=== PATIENT | female | born 1940 | race Caucasian/White ===

== ENCOUNTER 2017-01-27 22:07 | Emergency (ER) | payer MEDICARE, OTHER ==
--- NOTE | ~2017-01-27 | ER ---
PATIENT'S NAME: WESLEY LÓPEZ [facility] AGE: 76 Y [address] ROOM: [place] [address] LOCATION: [facility] ADMIT DATE: 01/27/2017 ER/Outpatient Report DISCHARGE DATE: FAMILY PHYSICIAN: Physician, Unknown ATTENDING PHYSICIAN: Marcio Guadalupe HISTORY OF PRESENT ILLNESS: This patient is a 76-year-old female, who presented to the emergency room with exacerbation of her asthma. She is short of breath with a cough. She kind of panicked tonight, ended up coming to the emergency room for evaluation. The patient saw ALEXANDRIA Woodson, initially. The patient got IV Solu-Medrol 125 mg here in the emergency department, got a DuoNeb and an albuterol nebulizer respiratory treatment here in the emergency department. She was placed on some oxygen per nasal cannula for a short period of time. Her chest x-ray showed no acute infiltrate. We will review x-ray with the radiologist. LABORATORY DATA: Her lactate was 1.9. Procalcitonin was less than 0.05. CMS was normal except for a slightly low potassium at 3.5, slightly elevated glucose at 104, an elevated alkaline phosphatase of 174. White count was 7000, 69 segs, 21 lymphs, 9 monos, 1 eosinophil. Hemoglobin is 15.7 with hematocrit 47.3, platelet count is 170,000. IMPRESSION: 1. Exacerbation of asthma. 2. Chronic obstructive pulmonary disease. PLAN: The patient is discharged home. Observation. Activity as tolerated. Continue present home medications and care. Fluids and diet as tolerated. Xopenex 1.25 mg unit dose use per nebulizer respiratory treatment 4 times a day as needed. Prednisone 20 mg twice a day for 1 week. Follow up with personal physician as needed. Discussion ensued with the patient concerning my findings and recommendations, she understands. MARCIO GUADALUPE MD SDS/modl /[id number] d: 01/28/17 0047 t: 02/27/17 0342, OUTPATIENT REPORT
--- NOTE | ~2017-01-27 | ER ---
PATIENT'S NAME: WESLEY LÓPEZ [facility] AGE: 76 Y [address] ROOM: [place] [address] LOCATION: [facility] ADMIT DATE: 01/27/2017 ER/Outpatient Report DISCHARGE DATE: FAMILY PHYSICIAN: Physician, Unknown ATTENDING PHYSICIAN: Nura Hyman Time of Arrival: 2207 hours. Time of Evaluation: 2230 hours. CHIEF COMPLAINT: Asthma exacerbation. HISTORY OF PRESENT ILLNESS: This is a 76-year-old female, who presents to the ER, who states that she is having troubles breathing. The patient states she has a history of chronic COPD and bronchitis. She feels like her symptoms have worsened over the past week. She states she was evaluated by Dr. Collins on Saturday, but no medications were started at that time. The patient states that she feels like she got much worse tonight. She states she has had a productive cough. She states that she is not able to get it coughed all the way out, however. She has not been running any fevers. She denies any vomiting or diarrhea. ALLERGIES AND MEDICATIONS: Please see medication list in nurse's notes. PAST MEDICAL HISTORY: Asthma, hypothyroidism, back pain, arthritis, hypertension, COPD, cardiomyopathy, dyslipidemia, tremor, depression, anxiety, degenerative joint disease. PAST SURGICAL HISTORY: Bilateral total knee, right knee scope, cholecystectomy, hysterectomy, tonsillectomy, adenoids, and colonoscopy. SOCIAL HISTORY: She drinks alcohol rarely. Denies any smoking use. REVIEW OF SYSTEMS: A 10-point review of systems was completed and was negative with the exception of those discussed in the HPI. PHYSICAL EXAMINATION: VITAL SIGNS: Height 5 feet 3 inches stated, blood pressure is 180/100, pulse 97, respirations 20, saturations 99% on room air. Griswold Coma Score is 15. GENERAL: Alert, slightly anxious appearing female, in mild distress. PATIENT'S NAME: WESLEY LÓPEZ [facility] AGE: 76 Y [address] ROOM: [place] [address] LOCATION: [facility] ADMIT DATE: 01/27/2017 ER/Outpatient Report DISCHARGE DATE: FAMILY PHYSICIAN: Physician, Unknown ATTENDING PHYSICIAN: Nura Hyman HEENT: Head: Normocephalic. She does display moist mucous membranes. Eyes: Pupils are equal and reactive to light. NECK: Supple. No lymphadenopathy. LUNGS: Diminished. Does have an occasional wheeze throughout. HEART: Regular rate and rhythm. No lifts, thrills, or murmurs. ABDOMEN: Soft, nontender. She has good bowel sounds throughout. No masses are palpated. EXTREMITIES: No clubbing or cyanosis noted. LABORATORY DATA AND X-RAYS: Pending. I will be turning the patient's care over to Dr. Hyman at this time. The patient understands and agrees with care. JARVIS LANGFORD PA-C FOR MD MAHSA BERRIOS/nakia /[id number] d: t: 01/31/172032, OUTPATIENT REPORT
[2017-01-27 23:04] LABS: BASOPHIL % 0.4 %; EOSINOPHIL # 0.1 K/uL (0.0-0.5); EOSINOPHIL % 1.1 %; HEMATOCRIT 47.3 % (33.0-46.0); HEMOGLOBIN 15.7 g/dL (10.0-15.0); IMMATURE GRANULOCYTE % 0.1 %; LYMPHOCYTE # 1.5 K/uL (0.8-4.0); LYMPHOCYTE % 20.9 %; MCH 31.4 pg (27.0-34.0); MCHC 33.2 gm/dL (32.0-36.5); MCV 94.6 fl (83.0-98.0); MONOCYTE # 0.6 K/uL (0.0-1.0); MONOCYTE % 8.8 %; MPV 10.3 fl (9.4-12.4); NEUTROPHIL # (ANC) 4.8 K/uL (1.8-7.8); NEUTROPHIL % 68.7 %; NRBC % 0 /100WBC (0-0.00); PLATELET COUNT 170 K/uL (150-450); RDW-CV 13.2 % (11.9-14.6)
[2017-01-27 23:20] LABS: ALBUMIN 4.1 gm/dL (3.5-5.0); ALK PHOS 174 IU/L (33-138); ALT 27 IU/L (12-78); ANION GAP 12.5 (10.0-19.0); AST 23 IU/L (10-40); BLOOD UREA NITROGEN 17 mg/dL (6-24); CALCIUM 8.8 mg/dL (8.5-10.5); CHLORIDE 104 mMol/L (96-110); CO2 26 mMol/L (22-32); CREATININE 0.8 mg/dL (0.5-1.1); ESTIMATED GFR (MDRD EQUATION) > 60; POTASSIUM 3.5 mMol/L (3.7-5.1); SODIUM 139 mMol/L (135-145); TOTAL BILIRUBIN 0.3 mg/dL (0.0-1.5); TOTAL PROTEIN 7.1 g/dL (6.0-8.4)
== END 2017-01-28 00:45 | disposition disaster alternative care site (69) ==
LOC: GMED 22:07
PROVIDERS: Physician Assistant Medical
DX: J45.901 Unspecified asthma with (acute) exacerbation (principal); J44.9 Chronic obstructive pulmonary disease, unspecified; E03.9 Hypothyroidism, unspecified; M19.90 Unspecified osteoarthritis, unspecified site; I10 Essential (primary) hypertension; E78.5 Hyperlipidemia, unspecified; F32.9 Major depressive disorder, single episode, unspecified; F41.9 Anxiety disorder, unspecified; Z90.710 Acquired absence of both cervix and uterus; Z90.89 Acquired absence of other organs; Z79.82 Long term (current) use of aspirin
CPT/HCPCS: J2930

== ENCOUNTER → 2017-02-13 | Outpatient (CLI) | payer MEDICARE, OTHER ==
--- NOTE | ~2017-02-13 | PUL ---
PATIENT'S NAME: PINKY LÓPEZ [facility] AGE: 76 Y [address] ROOM: [place] [address] LOCATION: [facility] ADMIT DATE: 02/13/2017 Pulmonary DISCHARGE DATE: FAMILY PHYSICIAN: Zenobia Collins MD ATTENDING PHYSICIAN: JAY ALEJO NAME OF PROCEDURE: Pulmonary Function Test DATE OF PROCEDURE: February 13, 2017 TECH: YOHANNES Pathak REASON FOR EXAM: Asthma RESULTS: 1. FVC was 2.32 liters which is 96% of predicted and normal, FEV1 was 1.74 liters which is 96% of predicted and normal, and FEV1/FVC was 75% and normal. The flow volume curve did not reveal any significant airflow limitation. After bronchodilator administration FVC increased to 2.43 liters which is a 5% increase and FEV1 increased to 1.85 liters which is a 6% increase. FEV1/FVC was 76%. 2. DLCO was 16.7 with an adjusted DLCO of 15.6 which is 85% of predicted and normal. 3. Total lung capacity was 4.99 liters which is 115% of predicted and normal, and residual volume was 2.67 liters which is 145% of predicted and high. PHYSICIAN INTERPRETATION: The patient has no airflow limitation and no significant bronchodilator response. Her diffusion capacity is normal. She has evidence of air trapping on lung volumes. JAY ALEJO MD RFN/ks /[id number] dtt: 02/18/17 0701 MELO RADU F dtd: 02/14/17 1341
== END | disposition disaster alternative care site (69) ==
LOC: GRTH 12:33
DX: J45.909 Unspecified asthma, uncomplicated (principal)

== ENCOUNTER 2017-05-06 22:49 | Emergency (ER) | payer MEDICARE, OTHER ==
--- NOTE | ~2017-05-06 | ER ---
PATIENT'S NAME: PINKY LÓPEZ [facility] AGE: 76 Y [address] ROOM: [place] [address] LOCATION: [facility] ADMIT DATE: 05/06/2017 ER/Outpatient Report DISCHARGE DATE: 05/07/2017 FAMILY PHYSICIAN: Zenobia Collins MD ATTENDING PHYSICIAN: Alberto De La Torre CHIEF COMPLAINT: Left hand weakness. HISTORY OF PRESENT ILLNESS: The patient arrives by EMS. Around 4:30 p.m., she began to just not feel right; however, at 2207 hours, she developed weakness in her left hand with left-sided numbness kind of throughout her body up into her face. She denies any difficulties talking or thinking during that time. She states she never lost complete control. EMS recommended stroke alert prior to arrival and this was initiated. No other acute issues at this time. The patient does have a fairly extensive medical history. PAST MEDICAL HISTORY: Documented on the record and reviewed by me. SOCIAL HISTORY: Documented on the record and reviewed by me. MEDICATIONS: Documented on the record and reviewed by me. ALLERGIES: DOCUMENTED ON THE RECORD AND REVIEWED BY ME. REVIEW OF SYSTEMS: All systems reviewed and negative except as noted in the HPI. PHYSICAL EXAMINATION: VITAL SIGNS: Blood pressure 194/95, pulse 63, respiratory rate 16, temperature 97.9, SpO2 is 96% on room air. Pain 0/10. GENERAL: An age appropriate female, tired appearance. No pain or distress. NEUROLOGIC: The patient is awake. She has GCS of 15. There is no focal deficit on her exam. She has no dysarthria. No facial asymmetry. She has a fine resting tremor of the chin and extremities. She has no asymmetry on her exam. Her cyanide case hardener strength appears to be intact. No pronator drift. Proximal and distal muscles of the flexors and extensors of the upper and lower extremities are symmetric. No obvious sensory deficits. HEENT: Normocephalic, atraumatic. Eyes are PERRL. Oropharynx is clear. NECK: Supple. Trachea is midline. PATIENT'S NAME: PINKY LÓPEZ [facility] AGE: 76 Y [address] ROOM: [place] [address] LOCATION: [facility] ADMIT DATE: 05/06/2017 ER/Outpatient Report DISCHARGE DATE: 05/07/2017 FAMILY PHYSICIAN: Zenobia Collins MD ATTENDING PHYSICIAN: Alberto De La Torre CHEST/HEART: Regular rate and rhythm with no murmurs. LUNGS: Grossly clear to auscultation bilateral with no rhonchi, wheezes, or rales. ABDOMEN: Soft, nontender, and nondistended. BACK: Normal to inspection and palpation. EXTREMITIES: Warm well perfused. The patient is missing all of the fingers on her right hand. Thumb is intact. No other obvious abnormalities. SKIN: Clean, dry, and intact. LABORATORY DATA AND X-RAYS: Head CT is unremarkable. EKG: Sinus rhythm, rate of 60 with normal intervals and axis. No signs of acute ischemia or dysrhythmia. Labs: Urinalysis with 500 leukocytes, 5-10 wbc's, 2-5 epithelials and no bacteria. CBC: White count is 11.2, hemoglobin is 15.4, platelets of 234. INR is less than 1. CMS without abnormality of the electrolytes with a slight decrease in GFR of 54. No elevation of BUN. Troponin is below detectable threshold. IMPRESSION: Possible transient ischemic attack. EMERGENCY DEPARTMENT COURSE: The patient was seen and evaluated as above. Stroke alert was initiated prior to arrival. The patient evaluated by Dr. Patel. Head CT, not consistent with hemorrhage. The patient has no testable deficits at this time. Based on EMS report, this was likely the case of a TIA. She did have elevated blood pressure, but states her current levels are relatively normal for her. This did begin to improve as she relax some, however. Her presentation is not consistent with hypertensive emergency or urgency. The patient states she had recent echos and carotid Dopplers within the last year, and she was hesitant to be admitted for observation. With this in mind, I believe the patient has made an appropriate decision with appropriate insight and understanding. She will be discharged home in good condition. She is to return immediately if worse. MD LUZ MARIA PETTIT/nakia /[id number] d: 05/07/17 0450 t: 05/07/17 1934, OUTPATIENT REPORT
--- NOTE | ~2017-05-06 | CON ---
PATIENT'S NAME: PINKY LÓPEZ [facility] AGE: 76 Y [address] ROOM: [place] [address] LOCATION: [facility] ADMIT DATE: 05/06/2017 Consultation DISCHARGE DATE: 05/07/2017 FAMILY PHYSICIAN: Zenobia Collins MD ATTENDING PHYSICIAN: Alberto De La Torre DATE OF CONSULTATION: 05/06/2017 HISTORY OF PRESENT ILLNESS: The patient was seen in the emergency room on 05/06/2017 as a stroke alert at 10:30 p.m. I was called down to the emergency room by Dr. De La Torre to assess Ms. López, who states that this evening she was sitting in her recliner and suddenly felt some numbness on the left lower portion of the face as well as some numbness into her left hand as well as some numbness into her left leg, which she said "her left leg fell asleep." She did not necessarily tried to ambulate, so it is unclear if she was weak. She perhaps had some difficulty in manipulating an object in her left hand but otherwise she denied any slurring of speech and her symptoms essentially have resolved by the time she was in the emergency room. She did not have any focal drift suggestive of any weakness at all in her left upper extremity. Her left lower extremity displayed full power. There was some subtle flattening of the left nasolabial fold but this eliminated with smiling and may represent some minor asymmetry. The patient was taken to the CAT scan of the brain, which showed no evidence of an acute stroke or evidence to suggest any tumor or bleed. Essentially, the patient's blood pressure was fairly benign into the 130 systolic. The patient during the day says that she had blood pressures in the range of 220 in the a.m. and had taken 2 nitroglycerin tablets nearly 10 hours prior to coming to the hospital. Again, this did not occur at the time around her having her symptoms, which seemed to have occurred at around 4:00 p.m. and possibly about 1 hour prior to coming to this hospital. The time I saw the patient, I rated her is 0 based upon the NIH stroke scale. She would therefore not be a tPA candidate as her symptoms had completely resolved. PRIOR MEDICAL HISTORY: She has a history of hypertension, for which she is on a few blood pressure medications, a history of asthma, and allergic rhinitis, history of osteopenia, and a history of a left hand tremor. CURRENT MEDICATIONS: Include: 1. Vitamin D 1000 mg p.o. daily. 2. Carvedilol 1/2 tablets of 6.25 mg daily. 3. Nitrostat 0.4 mg subcutaneously for chest pain p.r.n. 4. Lipitor 20 mg p.o. daily. 5. Aspirin 325 mg daily. PATIENT'S NAME: PINKY LÓPEZ [facility] AGE: 76 Y [address] ROOM: [place], [place] [address] LOCATION: [facility] ADMIT DATE: 05/06/2017 Consultation DISCHARGE DATE: 05/07/2017 FAMILY PHYSICIAN: Zenobia Collins MD ATTENDING PHYSICIAN: Alberto De La Torre 6. Mobic 7.5 mg p.o. daily. 7. Losartan 50 mg two tablets p.o. daily. 8. Spironolactone 25 mg p.o. daily. 9. Levothyroxine 100 mcg p.o. daily. 10. Promethazine 12.5 mg, not sure of the delivery q.6 hours p.r.n. migraine. 11. Cyclobenzaprine 5 mg p.o. b.i.d. p.r.n. muscle spasms. 12. Reclast 5 mg IV every month. 13. Inderal, unknown dose for her left hand tremor. SOCIAL HISTORY: The patient denies any smoking or alcohol history. She lives with her son whom is in his 60s. He has cerebral palsy. She was and is now a for past five and half years. She lives here in [place]. FAMILY HISTORY: Noncontributory. ALLERGIES: NO KNOWN DRUG ALLERGIES. REVIEW OF SYSTEMS: The patient has resolved symptoms that was suggestive of a TIA with left facial numbness, left hand numbness, and left foot numbness. All this resolved spontaneously possibly lasting for around 45 minutes. The patient scored 0 on my NIH stroke scale upon my evaluation today and a CAT scan of the brain performed, which was negative. Furthermore on review of systems, hypertension though the patient presents with a fairly normal blood pressure here in the hospital with a systolic blood pressures in the 130s though it was as high as to 220s at home. She is on chronic pain medications for left hip pain. Endocrine grigsby, she has a history of hypothyroidism and osteopenia for which she takes vitamin D and Reclast. The rest of a 10-point review of systems is within normal limits. PHYSICAL EXAMINATION: GENERAL: The patient is a pleasant 76-year-old female, in no acute distress. VITAL SIGNS: Revealed a pulse that was regular at 62 beats per minute, a blood pressure was 134/68, temperature is afebrile. NEUROLOGIC: Cranial Nerves: Some mild flattening of the left nasolabial fold, which may be chronic. This eliminates with smiling. There is no facial asymmetry as far as sensory perception. She does not complain about any current numbness of the face. Neck supple on flexion and extension. Testing of the power in the bilateral upper extremities and bilateral lower extremities is symmetric. I did not appreciate any pronator drift of the left arm. She was able to elevate her left leg above the bed without any evidence PATIENT'S NAME: PINKY LÓPEZ [facility] AGE: 76 Y [address] ROOM: [place] [address] LOCATION: [facility] ADMIT DATE: 05/06/2017 Consultation DISCHARGE DATE: 05/07/2017 FAMILY PHYSICIAN: Zenobia Collins MD ATTENDING PHYSICIAN: Alberto De La Torre of a pronator drift. There was normal sensory perception. Her speech is clear and there were no problems with language such as paraphasic errors. Her mentation was normal and she was a good historian. IMPRESSION: As said most the patient this afternoon had symptoms that was suggestive of a transient ischemic attack. In the past, I believe the patient had a workup, which did include an MRI of the brain, which was completely within normal limits. Because the patient has resolved symptoms and its completely normal physical exam and desires to go home, we discussed that we can complete any particular stroke workup such as an echocardiogram or a carotid artery study as an outpatient during the course of the week or next week. From standpoint of recurrence of stroke like symptoms or transient ischemic attack symptoms, she certainly has a risk for increased stroke, but I do recommend since she is on an antiplatelet agent already that we do not change the aspirin presently but would recommend increasing the Lipitor to 40 mg daily. I also recommend that the patient not take Mobic on a daily basis. There is some evidence in studies that find daily use of Mobic increases the risk for cardiac thrombosis and possible stroke when used daily on long-term use. From standpoint of the patient going home at this time since her symptoms are resolved, we certainly want her to follow up as an outpatient and she will arrange for this along with her son this week. The patient understands the nature of her TIA symptomatology on presentation, important that we follow her also with her blood pressure. Thus, she will also be seen on followup by her primary care physician, Dr. Collins. MD ALDO PAGAN/nakia /[id number] d: 05/07/17 0256 t: 05/16/17 1313, CONSULTATION REPORT
[2017-05-06 23:32] LABS: BASOPHIL # 0.1 K/uL (0.0-0.2); BASOPHIL % 0.4 %; EOSINOPHIL # 0.2 K/uL (0.0-0.5); EOSINOPHIL % 1.7 %; HEMATOCRIT 45.9 % (33.0-46.0); HEMOGLOBIN 15.4 g/dL (10.0-15.0); IMMATURE GRANULOCYTE % 0.4 %; LYMPHOCYTE # 2.7 K/uL (0.8-4.0); LYMPHOCYTE % 24.2 %; MCH 31.9 pg (27.0-34.0); MCHC 33.6 gm/dL (32.0-36.5); MONOCYTE # 0.9 K/uL (0.0-1.0); MONOCYTE % 8.2 %; MPV 10.7 fl (9.4-12.4); NEUTROPHIL # (ANC) 7.3 K/uL (1.8-7.8); NEUTROPHIL % 65.1 %; NRBC % 0 /100WBC (0-0.00); RBC 4.83 M/uL (3.50-5.50); RDW-CV 12.9 % (11.9-14.6); WBC 11.2 K/uL (4.0-11.0)
[2017-05-06 23:33] LABS: PLATELET COUNT 234 K/uL (150-450)
[2017-05-06 23:38] LABS: BILIRUBIN URINE NEGATIVE (NEGATIVE); BLOOD URINE NEGATIVE /UL (NEGATIVE); COLOR URINE YELLOW (YELLOW); GLUCOSE URINE NEGATIVE (NEGATIVE); KETONE URINE NEGATIVE (NEGATIVE); LEUKOCYTES URINE 500 /UL (NEGATIVE); NITRITE URINE NEGATIVE (NEGATIVE); PROTEIN URINE 15 mg/dL (NEGATIVE); SPEC GRAVITY URINE 1.015 (1.003-1.035); TURBIDITY URINE CLEAR (CLEAR); UROBILINOGEN URINE NORMAL (NORMAL)
[2017-05-06 23:43] LABS: INR - (THERAPEUTIC) 0.98 (0.92-1.07); PROTIME 10.3 SECONDS (9.8-11.4); PTT 23 SECONDS (25-32)
[2017-05-06 23:44] LABS: BACTERIA URINE NEGATIVE (NEGATIVE); RBC URINE NEGATIVE #/HPF (NEGATIVE)
[2017-05-06 23:51] LABS: ALBUMIN 3.9 gm/dL (3.5-5.0); ANION GAP 12.8 (10.0-19.0); BLOOD UREA NITROGEN 18 mg/dL (6-24); CALCIUM 9.5 mg/dL (8.5-10.5); CHLORIDE 108 mMol/L (96-110); CO2 25 mMol/L (22-32); ESTIMATED GFR (MDRD EQUATION) 54; PHOSPHORUS 2.7 mg/dL (2.5-4.9); POTASSIUM 3.8 mMol/L (3.7-5.1); SODIUM 142 mMol/L (135-145)
== END 2017-05-07 00:30 | disposition disaster alternative care site (69) ==
LOC: GMED 22:49
PROVIDERS: Emergency Medicine
DX: R29.898 Other symptoms and signs involving the musculoskeletal system (principal); I10 Essential (primary) hypertension; E03.9 Hypothyroidism, unspecified; J45.909 Unspecified asthma, uncomplicated; Z79.82 Long term (current) use of aspirin; Z79.899 Other long term (current) drug therapy

== ENCOUNTER → 2017-05-06 | Outpatient (CLI) | payer MEDICARE, OTHER | END | disposition disaster alternative care site (69) | LOC: GAMB 22:24 | DX: I63.9 Cerebral infarction, unspecified (principal); I10 Essential (primary) hypertension; R53.1 Weakness | CPT/HCPCS: A0422; A0425; A0427 ==

== ENCOUNTER → 2017-05-13 | Outpatient (CLI) | payer MEDICARE, OTHER ==
--- NOTE | ~2017-05-13 | ENPV ---
Carotid Duplex Study Demographics Patient Name PINKY LÓPEZ Date of Study 05/13/2017 Patient Number [id number] Gender Female Date of 1940 Age 76 Visit Number [id number] Height Accession Number [id number] Weight Room Number BSA BMI Referring Karina Marin MD Interpreting Theron Driscoll MD Physician Physician Physician Ordering Karina Marin Tub Wash Operator Physician Event Services Manager Rory Doan [facility] [[email or web address]], T Conclusions Summary The right internal carotid artery has mild, 1-39%, plaque and stenosis. The right vertebral artery is present with antegrade flow. The left internal carotid artery has mild, 1-39%, plaque and stenosis. The left vertebral artery is present with antegrade flow. Procedure Type of Study: Cerebral:Carotid, Carotid Doppler Bilateral. Indications for Study:TIA. Appropriate Use Criteria:9 Blood Pressure:Right arm 137/73 mmHg.Left arm 136/63 mmHg. Patient Status:Routine. Study Location:Vascular Lab. Technical Quality:Adequate visualization. Velocities are measured in cm/s ; Diameters are measured in cm Carotid Right Measurements Carotid Left Measurements + +--------+--------+ + + + +--------+ --------+ + + !Location !PSV !EDV !Angle !%Stenosis ! !Location !PSV ! EDV !Angle !%Stenosis ! + +--------+--------+ + + + +--------+ --------+ + + !Prox CCA !95 !20 !60 ! ! !Prox CCA !121 ! 24 !60 ! ! + +--------+--------+ + + + +--------+ --------+ + + !Dist CCA !82 !14 !60 ! ! !Dist CCA !73 ! 17 !60 ! ! + +--------+--------+ + + + +--------+ --------+ + + !Prox ICA !101 !22 !60 ! ! !Prox ICA !68 ! 18 !60 ! ! + +--------+--------+ + + + +--------+ --------+ + + !Dist ICA !100 !26 !60 ! ! !Dist ICA !100 ! 28 !60 ! ! + +--------+--------+ + + + +--------+ --------+ + + !Prox ECA !69 !12 !60 ! ! !Prox ECA !76 ! 12 !60 ! ! + +--------+--------+ + + + +--------+ --------+ + + !Vertebral !42 !9 !60 ! ! !Vertebral !34 ! 8 !60 ! ! + +--------+--------+ + + + +--------+ --------+ + + !Subclavian !119 ! !60 ! ! !Subclavian !134 ! !60 ! ! + +--------+--------+ + + + +--------+ --------+ + + - There is antegrade vertebral flow noted on the right side. - There is antegrade verte bral flow noted on the left side. - Add'l Measurements:Subclavian PRV 119 cm/sICAPSV/CCAPSV - Add'l Measurements:Subcl farhan PRV 134 cm/sICAPSV/CCAPSV 1.06.ICAEDV/CCAEDV 1.3. 0.83.ICAEDV/CCAEDV 1.17. Signature dtt: KOSTAS SURESH dtd: 05/13/17 0855
== END | disposition disaster alternative care site (69) ==
LOC: GCAR 08:28
DX: G45.9 Transient cerebral ischemic attack, unspecified (principal)

== ENCOUNTER → 2017-05-20 | Outpatient (CLI) | payer MEDICARE, OTHER | END | disposition disaster alternative care site (69) | LOC: GRAD 12:52 | DX: G45.9 Transient cerebral ischemic attack, unspecified (principal) ==